=== PATIENT | female | born 1985 | race Caucasian/White ===

== ENCOUNTER 2018-05-01 04:22 | Inpatient (IN) | payer OTHER ==
[2018-05-01] MEDS ORDERED: Ringers Lactate 1,000 ML IV SCH (08:00)
[2018-05-01 08:15] LABS: Absolute Lymphocytes (CBC) 1.9 K/uL (0.7-4.9); Absolute Monocytes 0.7 K/uL (0.1-1.3); Absolute Neutrophil 7.1 K/uL (1.8-8.0); Basophils % 0.2 % (0-1.3); Eosinophils % 0.8 % (0-4.4); Hematocrit 33.4 % (36.0-45.0); Lymphocytes % 19.3 % (15.3-44.8); Monocytes % 7.6 % (3.3-12.3); RBC Red Blood Cell Count 3.69 M/uL (3.86-4.86)
[2018-05-01 08:25] LABS: Protime INR 1.02
[2018-05-01] MEDS: BETAMET ACET/BETAMET NA PH 6 MG/ML VIAL IM SCH (09:40)
[2018-05-01] MEDS ORDERED: RANITIDINE 150 MG TABLET PO SCH (09:50)
[2018-05-01] MEDS ORDERED: ACETAMINOPHEN 500 MG TAB PO PRN (09:50)
[2018-05-01] MEDS: PRENATAL VITAMIN PO SCH (10:05)
[2018-05-01] MEDS: ACETAMINOPHEN 500 MG TAB PO PRN ×2 (10:05→22:03)
[2018-05-01] MEDS: RANITIDINE 150 MG TABLET PO SCH ×2 (10:05→22:03)
[2018-05-01] MEDS: LEVOTHYROXINE SOD 0.05 MG TABLET PO SCH (10:05)
--- NOTE | 2018-05-01 10:37 | RAD REPORT ---
EXAM DESCRIPTION: US - OB Complete - 05/01/2018 8:28 am CLINICAL HISTORY: with vaginal bleeding. COMPARISON: April 13, 2018 FINDINGS: A single live intrauterine is in breech presentation. Placenta is anterior. It i s not low lying. A subchorionic bleed is not seen. A retroplacental bleed is not noted. Amniotic flui d index equals 11 centimeters with largest pocket of fluid 3.7 centimeters. Cardiac activity 150 beat s per minute. Cervix 5 centimeters. BPD 5 centimeter 21 weeks 1 day HC 19.6 centimeters 21 weeks 6 days. AC 16.7 centimeters 21 weeks 5 days. FL 3.7 centimeters 21 weeks 5 days. Estimated weight 444 grams. Estimated weight 60 percentile. The ratios are within normal limits. Estimated gestational age by the current ultrasound 21 weeks 4 days IMPRESSION: 1. A single live intrauterine is in breech presentation. 2. Estimated gestational age 21 weeks 21 weeks 3 days KATHLEEN 09/08/2018 3. Appropriate interval growth 3. Amniotic fluid is lower limits normal
--- NOTE | 2018-05-01 10:37 | RAD REPORT ---
EXAM DESCRIPTION: US - TRANSVAG OB CERVIX ASSESSMENT - 05/01/2018 8:36 am CLINICAL HISTORY: with vaginal bleeding. COMPARISON: April 13, 2018 FINDINGS: A single live intrauterine is in breech presentation. Placenta is anterior. It i s not low lying. A subchorionic bleed is not seen. A retroplacental bleed is not noted. Amniotic flui d index equals 11 centimeters with largest pocket of fluid 3.7 centimeters. Cardiac activity 150 beat s per minute. Cervix 5 centimeters. BPD 5 centimeter 21 weeks 1 day HC 19.6 centimeters 21 weeks 6 days. AC 16.7 centimeters 21 weeks 5 days. FL 3.7 centimeters 21 weeks 5 days. Estimated weight 444 grams. Estimated weight 60 percentile. The ratios are within normal limits. Estimated gestational age by the current ultrasound 21 weeks 4 days IMPRESSION: 1. A single live intrauterine is in breech presentation. 2. Estimated gestational age 21 weeks 21 weeks 3 days KATHLEEN 09/08/2018 3. Appropriate interval growth 3. Amniotic fluid is lower limits normal
--- NOTE | 2018-05-01 12:14 | P.PN ---
Date of Service: 05/01/18 US, no low lying placenta, mild anemia, normal platelets, PT, APTT, no US evidence of abruption/subchorionic hemmorhage. Plan, continue rest/observation.
[2018-05-02] MEDS: LEVOTHYROXINE SOD 0.05 MG TABLET PO SCH (06:30)
--- NOTE | 2018-05-02 08:14 | P.PN ---
Date of Service: 05/02/18 S-Less cramping, still small amt. of bleeding O-Abdomen soft, no ctx noted on monitoring. A-Satisfactory P-Stool softner, may allow to shower this afternoon
[2018-05-02] MEDS: PRENATAL VITAMIN PO SCH (09:00)
[2018-05-02] MEDS: BETAMET ACET/BETAMET NA PH 6 MG/ML VIAL IM SCH (09:00)
[2018-05-02] MEDS: RANITIDINE 150 MG TABLET PO SCH ×2 (09:00→22:09)
[2018-05-02] MEDS: DOCUSATE CALCIUM 240 MG CAP PO SCH ×2 (09:00→22:09)
--- NOTE | 2018-05-02 11:35 | PREOPHP ---
Date of Admission: 05/01/2018 History Of Present Illness: Ms. North is a 32-year-old female, 4, para 2- 0-1-2, who is now at 21+ weeks gestation. She has been followed by me during this with pro blems of hypothyroidism, history of macrosomia, gestational diabetes, elevated first 1 hour of gestational diabetes screen, and low-lying placenta at 18 weeks gestation, but with no evidence of pr evia. She noticed the onset of a gush of blood this morning and presented to Labor and Delivery for evaluation. At Labor and delivery, she was noted to have blood present. She denies any significant abdominal pain or discomfort, and 's heart rate was stating reactive with no decelerations. Past Medical History: Please see record. Family History: Please see record. Review of Systems: She reports no recent cough, cold, fever, or chills. No recent nausea or vomiting. She denies any b reast lumps or knots. She denies any bladder issues or bowel issues. Physical Examination: General: female, in no apparent distress, other than mild anxiety. Neck: Supple without adenopathy or thyromegaly. Lungs: Clear. Cardiac: Regular rate and rhythm without murmurs. Breasts: Not examined. Abdomen: Nontender. Pelvic: Speculum exam, cervix long and closed. Blood present, but no active ongoing bleeding. Extremities: No cyanosis, clubbing, or edema. Impression: A 21-week , low-lying placenta at 18 weeks gestation. Plan: We will do CBC, bedrest in the hospital for the next day or 2. We will give Celestone x2 dose s. We will do CBC, PT, and APTT. MPG/MODL Voice ID: [id number]
--- NOTE | 2018-05-02 17:09 | EKG ---
Test Date: 2018-05-02 Test Time: 15:55:26 Certified Teacher Assistant: VANDANA MEASUREMENT RESULTS: Intervals: Rate: 124 NJ: 160 QRSD: 74 QT: 306 QTc: 439 [place]: P: 58 NJ: 160 QRS: 61 T: 39 INTERPRETIVE STATEMENTS: Sinus tachycardia Otherwise normal ECG No previous ECG available for comparison Electronically Signed On 05-02-18 17:08:51 COMMUNITY HEALTH COUNSELOR by Solo Cruz
[2018-05-02 17:11] LABS: Magnesium 1.7 mg/dL (1.8-2.4); Potassium 3.8 mmol/L (3.5-5.1)
[2018-05-03] MEDS: ACETAMINOPHEN 500 MG TAB PO PRN (03:50)
[2018-05-03] MEDS: LEVOTHYROXINE SOD 0.05 MG TABLET PO SCH (06:41)
--- NOTE | 2018-05-03 08:04 | P.PN ---
Date of Service: 05/03/18 S-No complaints, no bleeding through the night, minimal cramping O-Afeb, vs stable, ecg, only sinus tach, normal Pa02, electrolytes and mg levels , abdomen non tender A-Satisfactory P-up in room, if no further bleeding may dismiss this evening.
[2018-05-03] MEDS ORDERED: Magnesium Sulfate 2gm IVPB 2 G/50 ML BAG IV ONE (08:05)
[2018-05-03] MEDS ORDERED: RANITIDINE 150 MG TABLET PO SCH (09:00)
[2018-05-03] MEDS ORDERED: [UNRECOGNIZED DRUG - REMARK] PO SCH (09:00)
[2018-05-04] MEDS ORDERED: LEVOTHYROXINE SOD 0.05 MG TABLET PO SCH (06:00)
--- NOTE | 2018-05-04 16:23 | DS ---
Date of Discharge: 05/03/2018 Final Hospital Discharge Diagnosis: 1.21+ week . 2.Vaginal bleeding. 3.Iron deficiency anemia. Complications: None. Procedures: None. Hospital Course: The patient is a 32-year-old female, 4, para 2-0-1-2 at 2 1+ weeks gestation, admitted with vaginal bleeding. Ultrasound showed no evidence of placenta previa . Blood count remained stable. Bleeding decreased daily. Cervix remained closed. She was dismisse d to be seen back in my office in approximately 1 week to double up on her iron tablets, increase hyd ration, pelvic rest, and no strenuous physical activities. Lab work obtained during this hospital st ay included an admission hemoglobin and hematocrit of 11.7 and 33.4. Coagulation studies including P T and APTT were normal. Borderline low potassium at 1.7, was given 2 g IV. She is O-positive blood type. Antibody screen negative. Infant remains stable. Ultrasound showed good growth and no obviou s signs of abruption or subchorionic bleed. MARISA/CLAUDE Voice ID: [id number] Report ID: [id number]
== END 2018-05-03 17:45 | disposition home or self-care (01) | DRG 833 ==
LOC: L&D 04:22 → 2ND-WC 07:00 → OBSVTOIN 07:00 → EDSTATUS 07:37
PROVIDERS: ADMIT Specialist; ATTEND Specialist
DX: O44.52 Low lying placenta with hemorrhage, second trimester (principal); O99.282 Endocrine, nutritional and metabolic diseases complicating pregnancy, second trimester; E03.9 Hypothyroidism, unspecified; O24.419 Gestational diabetes mellitus in pregnancy, unspecified control; O99.012 Anemia complicating pregnancy, second trimester; Z3A.21 21 weeks gestation of pregnancy
CPT/HCPCS: 36415; 76805; 76817; 80051; 83735; 85025; 85610; 85730; 86850; 86900; 86901; 93005; J3475

== ENCOUNTER 2018-06-21 17:56 | Inpatient (IN) | payer OTHER ==
[2018-06-21] MEDS ORDERED: Ringers Lactate 1,000 ML IV PRN (18:18)
[2018-06-21] MEDS ORDERED: BETAMET ACET/BETAMET NA PH 6 MG/ML VIAL IM ONE (18:20)
[2018-06-21 18:39] LABS: Absolute Lymphocytes (CBC) 1.9 K/uL (0.7-4.9); Absolute Neutrophil 6.4 K/uL (1.8-8.0); Basophils % 0.5 % (0-1.3); Eosinophils % 0.9 % (0-4.4); Hematocrit 30.5 % (36.0-45.0); Lymphocytes % 20.2 % (15.3-44.8); MPV 7.8 fL (7.6-11.3); Monocytes % 10.7 % (3.3-12.3); RBC Red Blood Cell Count 3.56 M/uL (3.86-4.86)
[2018-06-21 18:55] VITALS: BMI 30.7
[2018-06-21] MEDS ORDERED: Ringers Lactate 1,000 ML IV SCH (19:00)
[2018-06-21] MEDS ORDERED: hydrOXYzine HCl 25 MG TAB PO ONE (19:38)
--- NOTE | 2018-06-21 19:38 | P.PN ---
Date of Service: 06/21/18 CC-Bleeding, 28+ wks of . Alondra reported a gush of blood and comes to L&D. CX, not dilated, US no abnormalities, no obvious abruption, good growth, AFI15 A-Satisfactory, likely marginal abruption P-Steroids, rest, fluids, transfer of bleeding continues
--- NOTE | 2018-06-21 19:52 | RAD REPORT ---
EXAM DESCRIPTION: US - OB Complete - 06/21/2018 7:22 pm CLINICAL HISTORY: , vaginal bleeding COMPARISON: May 01, 2018 FINDINGS: A single breech presenting gestation is identified. The 4 chamber heart view has a normal appearance. Heart rate normal. The intracranial contents and spine are grossly normal. A left- sided stomach bubble is seen with normal appearing bladder and kidneys. The 3 vessel cord, insertion site and anterior abdominal wall have normal appearance. No abnormalities are identifiable. measurements are as follows: BPD:7.21 Centimeters 29 weeks 0 days HC:26.53 Centimeters 28 weeks 6 days AC:24.59 Centimeters 28 weeks 6 days HL:4.91 Centimeters 20 weeks 6 days FL:5.47 Centimeters 20 weeks 6 days The estimated gestational age (EGA) is 28 weeks 6 days with an KATHLEEN of 09/07/2018. ratios are n ormal or within acceptable limits. The placenta is grade I, anterior in location. No low-lying or tawanna centa previa. The amniotic fluid volume is normal. CURTIS is normal at 15.2 cm. No maternal adnexa abnormality. IMPRESSION: 1. Single, breech gestation with an EGA of 20 weeks 6 days and an KATHLEEN of the 09/07/2018. There has been appropriate interval growth since the May 01 study. 2. No abnormalities are identifiable. ratios are normal or within acceptable limits. 3. Grade I, anterior placenta with no low-lying or placenta previa. 4. Amniotic fluid volume is normal.
[2018-06-21] MEDS ORDERED: TERBUTALINE SULF 1 MG/1ML SQ ONE (22:20)
[2018-06-21] MEDS ORDERED: TERBUTALINE SULF 1 MG/1ML ONE (22:37)
--- NOTE | 2018-06-22 01:41 | PREOPHP ---
Date of Admission: 06/21/2018 History Of Present Illness: A second hospital admission this for Ms. North for vaginal bl eeding. She was admitted in early April, dismissed, has had no bleeding until this afternoon. Sh e had noticed some more [place] contractions earlier in the week and they had subsided some. S he had a gush of blood this afternoon when picking up her children from school and presented to Labor and Delivery complaining of the bleeding and a questionable rupture of membranes. She is a 32-year- old female, 4, para 2-0-1-2, now at 28 and 2/7th weeks' gestation. Other t poon the prior bleeding, she has not had issues since that episode. Past Medical History: See record. Family History: See record. Review of Systems: She reports no recent fever or chills. She has had a mild nonproductive cough. She denies any GI sy mptoms. Otherwise, no vaginal bleeding or spotting recently and chills today. No urine symptoms. Physical Examination: General: female, mildly anxious. Neck: Supple without adenopathy or thyromegaly. Lungs: Clear. Cardiac: Regular rate and rhythm without murmurs. Breasts: Not examined. Abdomen: Nontender. No regular contractions. heart rate is reactive with no periodic deceler ation. Pelvic: Presenting part is high cervix, is difficult to tell. It is very soft, less than fingertip and less than 30% effaced. Some dark blood present. Extremities: No cyanosis, clubbing, or edema. Impression: 28+ week , possible marginal sinus abruption. Plan: We will observe, hydrate, bedrest, 2 doses of Celestone. If labor ensues or bleeding continue s, we will consider transfer to a facility with a intensive care unit. Ultrasound done show s excellent CURTIS of 15 with no evidence of placenta previa, breech presentation . Growth parame ters consistent with from her prior ultrasound and/or also where she should be weeks of pr egnancy. MARKG/MODL Voice ID: [id number]
--- NOTE | 2018-06-22 08:15 | P.PN ---
Date of Service: 06/22/18 S-much less bleeding, no pain O-not much if any ctx seen A-Improved P-Advance diet, give second dose Celestone later today, resume home meds/iron and vitamins
[2018-06-22] MEDS ORDERED: HOME MED 1 EA UNK (Ranitidine [Zantac*] 150 MG) PO SCH (09:00)
[2018-06-22] MEDS ORDERED: RANITIDINE 150 MG TABLET PO SCH (09:00)
[2018-06-22] MEDS ORDERED: [UNRECOGNIZED DRUG - REMARK] PO SCH (09:00)
[2018-06-22] MEDS ORDERED: BETAMET ACET/BETAMET NA PH 6 MG/ML VIAL IM ONE (19:27)
[2018-06-23 05:57] LABS: Absolute Monocytes 0.2 K/uL (0.1-1.3); Absolute Neutrophil 6.6 K/uL (1.8-8.0); Hematocrit 26.4 % (36.0-45.0); Lymphocytes % 12.8 % (15.3-44.8); MPV 7.7 fL (7.6-11.3); RBC Red Blood Cell Count 3.06 M/uL (3.86-4.86)
[2018-06-23] MEDS ORDERED: HOME MED 1 EA UNK (Levothyroxine [Synthroid*] 50 MCG) PO SCH (06:00)
--- NOTE | 2018-06-23 07:15 | DS ---
Final Hospital Discharge Diagnoses: 1.28+ week . 2.Second trimester vaginal bleeding with suspected marginal abruption. 3.Iron deficiency anemia. Complications: None. Procedures: None. Hospital Course: The patient is a 32-year-old female, at approximately 28+ weeks g estation, who is admitted for the second time during this secondary to vaginal bleeding. I nfant's growth has been good. No evidence of concealed abruption noted on ultrasound. No evidence o f placenta previa noted. She was given 2 doses of Celestone, hydrated, and is at bed rest. Bleeding stopped. She will be dismissed to be taking vitamin daily, and 2 to 3 iron tablets daily. To be seen back in my office in 1 week with reduced activity and pelvic rest. Lab work included an admission hemoglobin and hematocrit of 10.1 and 30.5, at dismissal; 8.8 and 26.4. She is O positive blood type. Antibody screen negative. She will be dismissed to continue her levothyroxine and Zanta c in addition. MARISA/CLAUDE Voice ID: [id number] Report ID: [id number]
[2018-06-23 07:46] VITALS: BP 119/76; TEMP 98.1
== END 2018-06-23 12:43 | disposition home or self-care (01) | DRG 833 ==
LOC: L&D 17:56 → 2ND-WC 18:13
PROVIDERS: ADMIT Specialist; ATTEND Specialist
DX: O45.92 Premature separation of placenta, unspecified, second trimester (principal); Z3A.28 28 weeks gestation of pregnancy; O99.012 Anemia complicating pregnancy, second trimester; D50.8 Other iron deficiency anemias; O99.282 Endocrine, nutritional and metabolic diseases complicating pregnancy, second trimester; E03.9 Hypothyroidism, unspecified
CPT/HCPCS: 36415; 76805; 85025; 86850; 86900; 86901; J3105

== ENCOUNTER 2018-09-04 06:27 | Inpatient (IN) | payer OTHER ==
[2018-09-04] MEDS ORDERED: Ringers Lactate 1,000 ML IV PRN (06:40)
[2018-09-04] MEDS ORDERED: Ringers Lactate 1,000 ML IV SCH (07:00)
[2018-09-04] MEDS ORDERED: OXYTOCIN/LR 20 UNIT/1,000 ML BAG IV SCH (07:00)
[2018-09-04 07:01] VITALS: BMI 33.4
[2018-09-04 07:14] LABS: RPR Titer ND
[2018-09-04 07:17] LABS: Absolute Lymphocytes (CBC) 1.8 K/uL (0.7-4.9); Absolute Monocytes 0.5 K/uL (0.1-1.3); Absolute Neutrophil 4.9 K/uL (1.8-8.0); Basophils % 0.2 % (0-1.3); Lymphocytes % 24.9 % (15.3-44.8); MPV 8.6 fL (7.6-11.3); Monocytes % 7.4 % (3.3-12.3); RBC Red Blood Cell Count 4.21 M/uL (3.86-4.86); Urine Appearance CLOUDY; Urine Bilirubin NEGATIVE (NEG); Urine Blood NEGATIVE (NEG); Urine Color YELLOW; Urine Glucose NEGATIVE (NEG); Urine Protein NEGATIVE (NEG); Urine Urobilinogen 0.2 mg/dL (0.2-1.0)
[2018-09-04 07:31] LABS: Urine Microscopic Reflex ORDER UMIC
[2018-09-04] MEDS ORDERED: ROPIVACAINE HCL 2 MG/ML 100ML IV ONE (07:34)
[2018-09-04] MEDS ORDERED: FENTANYL CITR 100 MCG/2 ML IV ONE (07:34)
[2018-09-04] MEDS ORDERED: ROPIVACAINE HCL 100 ML IV ONE (07:34)
[2018-09-04 07:42] LABS: Urine Bacteria <20 /HPF (<20); Urine Culture Reflex Order NOT NEEDED; Urine RBC NONE SEEN /HPF (NONE SEEN)
[2018-09-04] MEDS ORDERED: ROPIVACAINE HCL 20 ML ONE (07:59)
[2018-09-04] MEDS ORDERED: CARBOPROST TROME 250 MCG/ML IM ONE (08:03)
[2018-09-04] MEDS ORDERED: LIDOCAINE 1% MPF 30 ML VIAL SQ ONE (08:03)
[2018-09-04] MEDS ORDERED: METHYLERGONOVINE 0.2MG/ML AMP IM ONE (08:03)
[2018-09-04] MEDS ORDERED: LIDOCAINE 1% W/EPI 1:100,000 MDV 20 ML VIAL IV ONE (08:10)
[2018-09-04] MEDS ORDERED: LIDOCAINE 1.5% W/EPI AMP 5 ML ONE (08:30)
[2018-09-04] MEDS ORDERED: EPHEDRINE SULF 50 MG/ML VIAL ONE (09:01)
--- NOTE | 2018-09-04 09:42 | PREOPHP ---
Date of Admission: 09/04/2018 History Of Present Illness: Ms. North is a 33-year-old female, 4, para 2-0-1-2, now at 38-5/7 weeks gestation, who will be admitted tomorrow for induction of labor secondary to term with history of possible marginal abruption. She will be admitted for delivery because of concerns with a past history of vaginal bleeding that could increase her risk of developing abruption. She has been followed by me during this complications and with reduced activity, and anemia, history of macrosomia, history of hypothyroidism. Past Medical History: Please see record. Family History: Please see record. Review of Systems: She reports no recent cough, cold, fever, or chills. No recent nausea, vomiting. She denies anything more than just brown discharge. She denies any breast lumps or knots. She denies any bowel or bladder issues. Physical Examination: General: Reveals female, in no apparent distress. Neck: Supple without adenopathy or thyromegaly. Lungs: Clear. Cardiac: Regular rate and rhythm without murmurs. Breasts: Not examined. Abdomen: Shows 40 cm fundal height, vertex presentation, Pelvic Exam: Cervix is 1 cm, 60% effaced, vertex presentation, -2 -3 station. Extremities: 1+ to 2+ lower extremity edema. Impression: Term , possible macrosomia, history of vaginal bleeding consistent with marginal abruption. Plan: The patient will be admitted for delivery tomorrow. Risks and benefits are discussed. She has signed operative permit in my presence. MARISA/CLAUDE Voice ID: [id number] LATRELL
[2018-09-04] MEDS ORDERED: PROMETHAZINE 25 MG/ML VIAL IV ONE (14:04)
[2018-09-04] MEDS ORDERED: PROMETHAZINE 25 MG/ML VIAL ONE (14:24)
[2018-09-04] MEDS ORDERED: METHYLERGONOVINE 0.2 MG TAB PO PRN (16:59)
[2018-09-04] MEDS ORDERED: ACETAMINOPHEN 500 MG TAB PO PRN (16:59)
[2018-09-04] MEDS ORDERED: METHYLERGONOVINE 0.2MG/ML AMP IM PRN (16:59)
[2018-09-04] MEDS ORDERED: CARBOPROST TROME 250 MCG/ML IM PRN (16:59)
--- NOTE | 2018-09-04 17:05 | P.BOP ---
Preoperative diagnosis: 38+ week , macrosomia, hx marginal abruption Postoperative diagnosis: same, delivered Primary procedure: SCVD, viable male infant, CANX1 Secondary procedure: repair, first degree perineal laceration Estimated blood loss: 400ml Anesthesia: epidural Complications: mild shoulder dystocia treated with McRobert's manuever Transferred to: Other (271) Condition: Good
[2018-09-04] MEDS: IBUPROFEN 200 MG TAB PO PRN (20:00)
[2018-09-04] MEDS: OXYTOCIN/LR 20 UNIT/1,000 ML BAG IV SCH (20:00)
[2018-09-04 20:33] LABS: RPR (Rapid Plasma Reagin) NON-REACT (NON-REACT)
[2018-09-04] MEDS ORDERED: Ringers Lactate 2,000 ML IV ONE (23:04)
[2018-09-05] MEDS: IBUPROFEN 200 MG TAB PO PRN ×3 (04:10→16:23)
[2018-09-05] MEDS ORDERED: LEVOTHYROXINE SOD 0.05 MG TABLET PO SCH (06:00)
[2018-09-05 08:20] VITALS: O2SAT 95
[2018-09-05] MEDS: OXYTOCIN/LR 20 UNIT/1,000 ML BAG IV SCH (09:00)
--- NOTE | 2018-09-05 14:33 | OP ---
Surgeon: Josh Patterson MD Ms. North is 33-year-old, , female, 3, para 2-0-0-2 at 38 and 6/7th weeks g estation. She is admitted for induction of labor secondary to term with history probable m arginal abruption earlier in the and now suspected macrosomia. She was noted to be 1 cm on admission. After rupture of membranes, Pitocin induction of labor, she had a first stage of l abor of 9 hours and 40 minute, second stage of labor of 20 minutes. She delivered by spontaneous con trolled vaginal delivery a 10-pound 3-ounce male infant over a first-degree perineal laceration. The infant delivered with mild shoulder dystocia, treated with Dwain maneuver. After milking the co rd toward the , cord was clamped, cut, and infant placed on mother's upper abdomen. Cord blood was obtained. Placenta was spontaneously expelled and appeared to be intact. She received 1 dose o f IM Methergine at that time because of mild atony, treated with Methergine, Pitocin, and vigorous fu ndal massage after the placenta was delivered. Intrauterine examination revealed no retained placent al fragments. The laceration was repaired with the usual fashion with 3-0 Vicryl suture. Estimated total blood loss perhaps 400 cc. The patient received epidural anesthesia during her labor course an d received good benefit from this. MARISA/CLAUDE Voice ID: [id number] Report ID: [id number]
[2018-09-05 16:44] VITALS: BP 130/87; TEMP 97
--- NOTE | 2018-09-06 05:12 | DS ---
Date of Discharge: 09/05/2018 Final Hospital Discharge Diagnoses: 38-6/7 weeks , delivered. macrosomia. Complications: Mild shoulder dystocia. Procedures: Artificial rupture membranes, Pitocin induction of labor, placement of epidural catheter , spontaneous controlled vaginal delivery of macrosomic male , repair of first-degree perineal laceration. Hospital Course: The patient is a 33-year-old female, 3, para 2-0-0-2, who underwent induction of labor. She delivered a 10-pound 3-ounce male infant, 9 and 9. She was dismissed on the first day, ambulatory, on a select diet with routine postvaginal deliver y activity restrictions, to be seen back in my office in 1 week, to take ibuprofen or Tylenol for berna n relief. Lab work included an admission hemoglobin and hematocrit of 10.7 and 33.0, dismissal hemat ocrit 27.1. She is Rh positive blood type. Rubella immune. She is to continue taking her iron and vitamins. MARISA/CLAUDE Voice ID: [id number] Report ID: [id number]
[2018-09-06 19:29] LABS: HBsAG Nonreactive (Nonreactive)
== END 2018-09-05 18:55 | disposition home or self-care (01) | DRG 807 ==
LOC: 2ND-WC 06:27
PROVIDERS: ADMIT Specialist; ATTEND Specialist
PROC: 10E0XZZ Delivery of Products of Conception, External Approach (ICD-10-PCS; principal; 2018-09-04)
PROC: 0HQ9XZZ Repair Perineum Skin, External Approach (ICD-10-PCS; 2018-09-04)
PROC: 3E033VJ Introduction of Other Hormone into Peripheral Vein, Percutaneous Approach (ICD-10-PCS; 2018-09-04)
DX: O36.63X0 Maternal care for excessive fetal growth, third trimester, not applicable or unspecified (principal); Z37.0 Single live birth; Z3A.38 38 weeks gestation of pregnancy; O70.0 First degree perineal laceration during delivery; O99.284 Endocrine, nutritional and metabolic diseases complicating childbirth; E03.9 Hypothyroidism, unspecified; Z91.040 Latex allergy status; O66.0 Obstructed labor due to shoulder dystocia; O69.81X0 Labor and delivery complicated by cord around neck, without compression, not applicable or unspecified
CPT/HCPCS: 36415; 81003; 81015; 85014; 85025; 86592; 86850; 86900; 86901; 87340; J2001; J2210; J2550; J2590; J2795; J3010